=== PATIENT | female | born 1980 | race Caucasian/White ===

== ENCOUNTER 2016-09-17 16:54 | Inpatient (IN) | payer OTHER ==
[~2016-09-17] VITALS: Ht 165.1 cm; Wt 124.9 kg
--- NOTE | 2016-09-17 18:22 | DIAGNOSTIC IMAGING REPORT ---
PROCEDURE: XR CHEST 1 VIEW INDICATION: SHORTNESS OF BREATH TECHNIQUE: Single view chest. 1745 hours COMPARISON: None FINDINGS: Normal cardiomediastinal contour. No central venous congestion. Moderate peribronchial thickening bilaterally. Patchy, multifocal, small alveolar opacities diffusely. No pleural effusion. Intact osseous structures. IMPRESSION: 1. Multifocal peribronchial thickening and alveolar opacities suggestive of bronchitis with superimposed bronchopneumonia and/or atelectasis. 2. No pleural effusion.
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
--- NOTE | 2016-09-17 22:03 | ED CLINICAL REPORT ---
Clinical Report - Physicians/Mid Levels [facility] [address] [place] [address] 09/17/2016 16:56 Patient: VERENICE ORTEGA Time Seen: 17:03. Arrived- By private vehicle. Historian- patient. HISTORY OF PRESENT ILLNESS Chief Complaint: DYSPNEA. (Worsening since 4-5 days ago. The was complicated by bleeding and required a 1 unit transfusion and an iron dextran infusion. The patient recalls her discharge HCT as 24. Prov records have been requested.). Is still present. The dyspnea is severe and is worsened by walking and exertion. No cough, sputum production, fever, chills or chest pain. No calf pain. She has had chest tightness and dyspnea on exertion. Similar symptoms previously: None. Recent medical care: The patient was seen recently by a health care provider. ( Delivered by 5 days ago at [facility] The was required because of the vertebral hemangioma). REVIEW OF SYSTEMS The patient is post-partal and lactating. No skin rash or rash, joint pain, chills or fever. No double vision, ear pain, sore throat, cough or diarrhea. No back pain or difficulty with urination. Denies current . The patient has had difficulty breathing, abdominal pain, constipation, nausea and vomiting. significant swelling in the lower extremities to the hips. All systems otherwise negative, except as recorded above. PAST HISTORY PCP: [facility], OB Dr Perez PROBLEMS: Vertebral Hemangioma Back Pain. Asthma. ADDITIONAL SURGERIES: Back Surgery. . SOCIAL HISTORY Former smoker, end date 07/2016. ADDITIONAL NOTES The nursing notes have been reviewed. PHYSICAL EXAM Vital Signs: 09/17/2016 23:16 BP: 147/77. HR: 97. RR: 22. O2 saturation: 100%. Temp: 99.2 F. Pain level now: 12/26. 09/17/2016 21:43 BP: 153/82. HR: 99. RR: 18. O2 saturation: 100%. Pain level now: 12/26. 09/17/2016 19:07 BP: 145/80. HR: 89. RR: 17. O2 saturation: 100%. 09/17/2016 17:10 BP: 161/88. HR: 107. RR: 20. O2 saturation: 97%. Temp: 98.1 F. Pain level now: 4/10. Appearance: Alert. (Moderat dyspnea with mild exertion). Eyes: Eyes normal inspection. ENT: Pharynx normal. Neck: Normal inspection. No jugular venous distention. CVS: Normal heart rate and rhythm. Heart sounds normal. No cardiac murmur. Respiratory: No respiratory distress. Breath sounds normal. Abdomen: Soft and nontender. Skin: Skin warm. Normal skin color. Extremities: Extremities exhibit normal ROM. No lower extremity edema. Neuro: No alteration in mental status. LABS, X-RAYS, AND EKG EKG: Normal EKG. Chest X-ray: (Borderline CM, bilat questionable LE ill defined infiltrates RR PROCEDURE: XR CHEST 1 VIEW INDICATION: SHORTNESS OF BREATH TECHNIQUE: Single view chest. 1745 hours COMPARISON: None FINDINGS: Normal cardiomediastinal contour. No central venous congestion. Moderate peribronchial thickening bilaterally. Patchy, multifocal, small alveolar opacities diffusely. No pleural effusion. Intact osseous structures. IMPRESSION: 1. Multifocal peribronchial thickening and alveolar opacities suggestive of bronchitis with superimposed bronchopneumonia and/or atelectasis. 2. No pleural effusion. Dictated by: KRUNAL HDZ MD D: CELINE;09/17/161821 <Electronically signed by KRUNAL HDZ MD in OV> 09/17/161821). Chest CT: (PROCEDURE: CTA THORAX WITH CONTRAST INDICATION: SHORTNESS OF BREATH TECHNIQUE: 92 ml of Isovue 370 was injected intravenously and axial images were obtained of the chest with 3D sagittal and coronal MIP reconstructions. COMPARISON: Chest x-ray Performed the same day FINDINGS: Suboptimal opacification of the pulmonary arteries. Given this, no obvious pulmonary arterial filling defect. Normal thoracic aorta and heart. No pericardial effusion. Moderate size bilateral pleural effusions. Fairly extensive multifocal bilateral upper lobe centralized patchy alveolar opacities. Mild peribronchial thickening diffusely. Patchy centralized alveolar opacities also seen in the left lower lobe and to a much lesser extent right middle and lower lobes. There is a prominent interstitial thickening at both lung bases. Prominent AP window lymph node measuring approximately 8.5 mm in short axis. Moderate bilateral hilar and subcarinal adenopathy. No suspicious anterior or posterior mediastinal mass. No hiatal hernia. Intact osseous structures with diffuse vertebral body hemangioma of T12 extending into the left pedicle. 16 mm hepatic hemangioma laterally in the right lobe. Gallbladder surgically absent. Liver and spleen are both enlarged. The spleen measures 15.8 cm in craniocaudal dimension. There is moderate diffuse edema in the subcutaneous tissues of the upper abdomen. IMPRESSION: 1. Given technical limitations, no pulmonary embolus. 2. Multifocal patchy centralized bilateral alveolar opacities, interstitial thickening pleural effusions suggests pulmonary edema of noncardiogenic origin. This could be secondary to volume overload or peripartum cardiomyopathy/heart failure. Given the timing, transfusion reaction is less likely. 3. Hepatosplenomegaly. 4. Anasarca. 5. Discussed with Dr. Hallman in the emergency room. Dictated by: KRUNAL HDZ MD D: RENEKR;09/17/162206 <Electronically signed by KRUNAL HDZ MD in OV> 09/17/162206). Abdominal Sonogram: (Name: VERENICE ORTEGA : 80 Sex: Female Age: 36 MR#: [id number] Pt Status: ADM Corrine Ordering Provider: VLADISLAV HALLMAN MD REPORT #: [id number] DATE OF EXAM(S): 09/17/16 PROCEDURE: US ABDOMEN ULTRASOUND-COMPLETE INDICATION: Low hematocrit status post . TECHNIQUE: Siddiqui scale and color Doppler sonographic images of the abdomen were obtained without comparison. COMPARISON: None. FINDINGS: The liver is diffusely enlarged measuring at least 24 cm, but normal echotexture. No mass or intrahepatic biliary dilatation. The gallbladder surgically absent. The extrahepatic common duct is normal measuring 5.5 mm. The visualized pancreas is normal without ductal dilatation or peripancreatic fluid collection. The abdominal aorta is normal in its course and caliber. The retrohepatic inferior vena cava is patent. There is appropriate hepatopetal flow in the portal vein. The right kidney measures 13.6 cm in length. The left kidney measures 13.5 cm in length. Both kidneys demonstrate normal morphology and cortical thickness without hydronephrosis, cyst, solid mass, or shadowing calculus. Color Doppler imaging demonstrates normal blood flow in each kidney. The spleen is enlarged measuring at least 13.0 cm in length. There is no perihepatic or perisplenic ascites. IMPRESSION: 1. No evidence of free abdominal fluid. 2. Hepatosplenomegaly. 3. Post cholecystectomy. Dictated by: KRUNAL HDZ MD D: CELINE;09/17/162205 <Electronically signed by KRUNAL HDZ MD in OV> 09/17/162205). Laboratory Tests: CBC w Diff: (NIMESH: 09/17/2016 17:40) ( MsgRcvd 09/17/2016 18:30) Final results Test Result Flag Units (Reference) WHITE BLOOD COUNT 12.1 H K/uL (4.5-11.5) RED BLOOD COUNT 2.52 L M/uL (4.00-5.20) HEMOGLOBIN 6.3 *L gm/dL (12.0-16.0) CRITICAL RESULTS CALLEDCalled to [facility] 09/17/161805Were 2 patient identifiers used? YWas the result read back? Y HEMATOCRIT 19.5 *L % (36.0-46.0) CRITICAL RESULTS CALLEDCalled to [facility] 09/17/161807Were 2 patient identifiers used? YWas the result read back? Y MEAN CELL VOLUME 77 L fL (80-100) MEAN CORPUSCULAR HGB 25 L pg (26-34) MEAN CORPUSCULAR HGB CONC 32 g/dL (31-37) RED CELL DISTRIBUTION WIDTH 17.9 H % (11.6-14.8) PLATELET COUNT 318 K/uL (150-400) NEUTROPHIL % 81.2 H % (50-75) LYMPH % 12.2 L % (25-40) MONO % 4.9 % (3-14) EOSINOPHIL % 1.4 % (0-4) BASOPHIL % 0.3 % (0-2) RBC MORPHOLOGY 1+ ANISOCYTOSIS~~2+ POLYCHROMIA~~2+ MICROCYTOSIS~~3+ HYPOCHROMIA~~1+ POIKILOCYTOSIS [id number]: (NIMESH: 09/17/2016 17:40) ( [facility] 09/17/2016 18:11) Final results Test Result Flag Units (Reference) D-DIMER QUANTITATIVE 2.11 H ug/mLFEU (0.27-0.52) The primary value of this quantitative assay relates toits negative predictive value (i.e. exclusion) of pulmonaryembolism/deep vein thrombosis/DIC.Elevated levels of d-dimer may also occur with:, age, cancer, inflammation, liver disease,post-op, infection, hematoma, coronary disease, peripheralarteriopathy, bleeding disorders and thrombolytic treatment.Results should be correlated with other clinical andradiological data.Testing Methodology: Latex Immunoassay [id number]: (NIMESH: 09/17/2016 17:40) ( [facility] 09/17/2016 19:04) Final results Test Result Flag Units (Reference) IRON 71 ug/dL (35-150) TOTAL IRON BINDING CAPACITY 435 ug/dL (260-445) % SATURATION 16 % (15-50) [id number]: (NIMESH: 09/17/2016 17:40) ( [facility] 09/17/2016 19:31) Final results Test Result Flag Units (Reference) VITAMIN B12 387 pg/mL (211-946) FOLATE 7.1 ng/mL (>3.0) BNP: (NIMESH: 09/17/2016 17:40) ( [facility] 09/17/2016 18:21) Final results Test Result Flag Units (Reference) B-TYPE NATRIURETIC PEPTIDE 117 H pg/ml (5-100) CHEM 13 PANEL: (NIMESH: 09/17/2016 17:40) ( MsgRcvd 09/17/2016 18:22) Final results Test Result Flag Units (Reference) GLUCOSE 123 H mg/dL (70-110) BUN 11 mg/dL (7-18) CREATININE 0.5 L mg/dL (0.6-1.3) Estimated GFR >60 mL/min Estimated GFR- >60 mL/min Note: Persistent reduction over 3 months in eGFR<60 mL/min/1.73 m2 defines CKD. Patients with eGFR values>=60 mL/min/1.73 m2 may also have CKD if evidence ofpersistent proteinuria. Additional information may be foundat www.kidney.org. SODIUM 143 mmol/L (136-145) POTASSIUM 3.9 mmol/L (3.5-5.1) CHLORIDE 109 H mmol/L (98-107) CARBON DIOXIDE 24 mmol/L (21-32) CALCIUM 8.0 L mg/dL (8.5-10.1) TOTAL PROTEIN 5.9 L g/dL (6.4-8.2) ALBUMIN 2.1 L g/dL (3.3-5.0) BILIRUBIN, TOTAL 0.2 mg/dL (0.0-1.0) ALKALINE PHOSPHATASE 162 H U/L (46-116) AST (SGOT) 35 U/L (15-37) ALT (SGPT) 45 U/L (12-78) MAGNESIUM 1.7 L mg/dL (1.8-2.4) CPK 132 U/L (24-260) TROPONIN I <0.05 ng/mL (0.00-1.5) TROPONIN REFERENCE RANGE:<0.1 NEGATIVE0.1-1.5 INDETERMINANT>1.5 POSITIVE Type & Cross: (NIMESH: 09/17/2016 22:01) ( MsgRcvd 09/17/2016 22:56) IP Test Result Flag Units (Reference) LEUKOREDUCED PACKED CELLS [id number] AP PC XM COMPATIBLE [id number] AP PC XM COMPATIBLE [id number] AP PC XM COMPATIBLE PATIENT BLOOD TYPE A Positive ANTIBODY SCREEN NEGATIVE . PROGRESS AND PROCEDURES Course of Care: Pretest DDX: PE, Edema, carditis, CHF 18:10 09/17/16. Hb 6.3 HCT 19.5 Where is the blood going? Pt denies significant vaginal bleeding. The pelvic US shows no large volume of intra uterine blood An abdominal US shows no free fluid/blood Why is the patient dyspnic? Both severe anemia and non-cardiogenic pulmonary edema. She does not have a PE, asthma or pneumonia Why does she have non cardiac pulmonary edema? The answer is not clear. The patient was initially discussed with Dr Steel when few labs were available. Dr Wong has come to the ED to admit the patient. Critical care performed (60 minutes). Time includes: direct patient care, patient reassessment, interpretation of data (laboratory data and chest xrays), review of patient's medical records, medical consultation and documentation of patient care- see progress notes. Old inpatient records reviewed. (Prov did not send labs. Those were re requested.). Disposition orders written. Disposition: Admitted. CLINICAL IMPRESSION NON CARDIOGENIC PULMONARY EDEMA ACUTE ANEMIA ACUTE DYSPNEA. (Electronically signed by Vladislav Hallman MD 09/18/2016 0:21)
--- NOTE | 2016-09-17 22:03 | ED ORDER SUMMARY ---
..... Patient: VERENICE ORTEGA OrderSheet [facility] VisitID: [id number] [place] [address] 36y, F Registration Date/Time: 09/17/2016 ORDER SHEET Weight: 111.5 kg (stated) Allergies: morphine, Sulfa Antibiotics GENERAL ORDERS: College Advisor (Continuous) (17:25 09/17/2016 Gualberto HUERTA) (18:44 JSimbeck R.N.) Chest 1V (Post ) Urgent (17:26 09/17/2016 Gualberto HUERTA) (Ack 17:27 Vlad) (17:48 JSimbeck R.N.) D-Dimer Urgent (17:09/17/2016 Gualberto HUERTA) (Ack 17:27 Vlad) (17:48 JSimbeck R.N.) BNP Urgent (17:09/17/2016 Gualberto HUERTA) (Ack 17:27 Vlad) (17:48 JSimbeck R.N.) Cardiac Panel Stat (17:09/17/2016 Gualberto HUERTA) (Ack 17:27 Vlad) (17:48 JSimbeck R.N.) Oxygen (2 L/min) (NC) (17:26 09/17/2016 Gualberto HUERTA) (17:51 JSimbeck R.N.) Pulse oximeter (17:26 09/17/2016 Gualberto HUERTA) (17:26 JSimbeck R.N.) EKG - ER Stat (17:26 09/17/2016 Gualberto HUERTA) (Ack 17:27 Vlad) (18:43 Vlad) US Abdomen Limited (No) (is there a lot of blood in the uterus.?) Urgent (18:16 09/17/2016 Gualberto HUERTA) (Ack 19:42 Rodrick) (Cancelled: Wrong Order20:03 [facility] Clinical Psychologist [facility]) CTA Thorax w Cont (No) (see chart) Urgent (19:15 09/17/2016 Gualberto HUERTA) (Ack 19:42 Rodrick) (21:46 JQuivey R.N.) US Pelvic Complete w Transvag Urgent (20:04 09/17/2016 [facility] verbal order read back to Gualberto HUERTA) (Ack 20:11 [facility]) (Cancelled: other20:45 Gualberto HUERTA) US Abdomen Complete (No) (do it like a FAST exam. ? free fluid in the abdomen. ) Urgent (20:45 09/17/2016 Gualberto HUERTA) (Ack 20:46 Rodrick) (21:46 Garcia Brody.N.) Type & Cross (SYMPTOMATIC ANEMIA) (SYMPTOMATIC ANEMIA) Urgent (22:01 09/17/2016 Gualberto HUERTA) (Ack 22:26 Rodrick) MEDICATION ORDERS: IV FLUIDS: IV Saline Lock (17:26 09/17/2016 Gualberto HUERTA) (17:48 АННАimbeck R.N.) Dilaudid IV 0.5 mg (HIGH ALERT MEDICATION, NOW) (00:00 09/18/2016 Gualberto HUERTA) (Ack 0:03 JQuivey R.N.) (0:06 JQuivey R.N.) ORDER SHEET NOTES: [Electronically signed by Pete Simons MD (00:21 09/18/2016)] [Electronically signed by Bertram Reynolds R.N. (02:12 09/18/2016)] [Electronically locked/signed by Bertram Reynolds R.N. (02:12 09/18/2016)]
--- NOTE | 2016-09-17 22:03 | ED ORDER SUMMARY ---
..... Patient: VERENICE ORTEGA OrderSheet [facility] VisitID: [id number] [place] [address] 36y, F Registration Date/Time: 09/17/2016 ORDER SHEET Weight: 111.5 kg (stated) Allergies: morphine, Sulfa Antibiotics GENERAL ORDERS: Datapower Developer (Continuous) (17:25 09/17/2016 Gualberto HUERTA) (18:44 JSimbeck R.N.) Chest 1V (Post ) Urgent (17:26 09/17/2016 Gualberto HUERTA) (Ack 17:27 Vlad) (17:48 JSimbeck R.N.) D-Dimer Urgent (17:09/17/2016 Gualberto HUERTA) (Ack 17:27 Vlad) (17:48 JSimbeck R.N.) BNP Urgent (17:09/17/2016 Gualberto HUERTA) (Ack 17:27 Vlad) (17:48 JSimbeck R.N.) Cardiac Panel Stat (17:09/17/2016 Gualberto HUERTA) (Ack 17:27 Vlad) (17:48 JSimbeck R.N.) Oxygen (2 L/min) (NC) (17:26 09/17/2016 Gualberto HUERTA) (17:51 JSimbeck R.N.) Pulse oximeter (17:26 09/17/2016 Gualberto HUERTA) (17:26 JSimbeck R.N.) EKG - ER Stat (17:26 09/17/2016 Gualberto HUERTA) (Ack 17:27 Vlad) (18:43 Vlad) US Abdomen Limited (No) (is there a lot of blood in the uterus.?) Urgent (18:16 09/17/2016 Gualberto HUERTA) (Ack 19:42 Rodrick) (Cancelled: Wrong Order20:03 [facility] Business Development Manager) CTA Thorax w Cont (No) (see chart) Urgent (19:15 09/17/2016 Gualberto HUERTA) (Ack 19:42 Rodrick) (21:46 JQuivey R.N.) US Pelvic Complete w Transvag Urgent (20:04 09/17/2016 [facility] Business Development Manager verbal order read back to Gualberto HUERTA) (Ack 20:11 [facility] Business Development Manager) (Cancelled: other20:45 Gualberto HUERTA) US Abdomen Complete (No) (do it like a FAST exam. ? free fluid in the abdomen. ) Urgent (20:45 09/17/2016 Gualberto HUERTA) (Ack 20:46 Rodrick) (21:46 Garcia Brody.N.) Type & Cross (SYMPTOMATIC ANEMIA) (SYMPTOMATIC ANEMIA) Urgent (22:01 09/17/2016 Gualberto HUERTA) (Ack 22:26 Rodrick) MEDICATION ORDERS: IV FLUIDS: IV Saline Lock (17:26 09/17/2016 Gualberto HUERTA) (17:48 АННАimbeck R.N.) Dilaudid IV 0.5 mg (HIGH ALERT MEDICATION, NOW) (00:00 09/18/2016 Gualberto HUERTA) (Ack 0:03 JQuivey R.N.) (0:06 JQuivey R.N.) ORDER SHEET NOTES: [Electronically signed by Pete Simons MD (00:21 09/18/2016)] [Electronically signed by Bertram Reynolds R.N. (02:12 09/18/2016)] [Electronically locked/signed by Bertram Reynolds R.N. (02:12 09/18/2016)]
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
--- NOTE | 2016-09-17 22:03 | ED CLINICAL REPORT ---
Clinical Report - Physicians/Mid Levels [facility] [address] [place] [address] 09/17/2016 16:56 Patient: VERENICE ORTEGA Time Seen: 17:03. Arrived- By private vehicle. Historian- patient. HISTORY OF PRESENT ILLNESS Chief Complaint: DYSPNEA. (Worsening since 4-5 days ago. The was complicated by bleeding and required a 1 unit transfusion and an iron dextran infusion. The patient recalls her discharge HCT as 24. Prov records have been requested.). Is still present. The dyspnea is severe and is worsened by walking and exertion. No cough, sputum production, fever, chills or chest pain. No calf pain. She has had chest tightness and dyspnea on exertion. Similar symptoms previously: None. Recent medical care: The patient was seen recently by a health care provider. ( Delivered by 5 days ago at [facility] The was required because of the vertebral hemangioma). REVIEW OF SYSTEMS The patient is post-partal and lactating. No skin rash or rash, joint pain, chills or fever. No double vision, ear pain, sore throat, cough or diarrhea. No back pain or difficulty with urination. Denies current . The patient has had difficulty breathing, abdominal pain, constipation, nausea and vomiting. significant swelling in the lower extremities to the hips. All systems otherwise negative, except as recorded above. PAST HISTORY PCP: [facility], OB Dr Perez PROBLEMS: Vertebral Hemangioma Back Pain. Asthma. ADDITIONAL SURGERIES: Back Surgery. . SOCIAL HISTORY Former smoker, end date 07/2016. ADDITIONAL NOTES The nursing notes have been reviewed. PHYSICAL EXAM Vital Signs: 09/17/2016 23:16 BP: 147/77. HR: 97. RR: 22. O2 saturation: 100%. Temp: 99.2 F. Pain level now: 12/26. 09/17/2016 21:43 BP: 153/82. HR: 99. RR: 18. O2 saturation: 100%. Pain level now: 12/26. 09/17/2016 19:07 BP: 145/80. HR: 89. RR: 17. O2 saturation: 100%. 09/17/2016 17:10 BP: 161/88. HR: 107. RR: 20. O2 saturation: 97%. Temp: 98.1 F. Pain level now: 4/10. Appearance: Alert. (Moderat dyspnea with mild exertion). Eyes: Eyes normal inspection. ENT: Pharynx normal. Neck: Normal inspection. No jugular venous distention. CVS: Normal heart rate and rhythm. Heart sounds normal. No cardiac murmur. Respiratory: No respiratory distress. Breath sounds normal. Abdomen: Soft and nontender. Skin: Skin warm. Normal skin color. Extremities: Extremities exhibit normal ROM. No lower extremity edema. Neuro: No alteration in mental status. LABS, X-RAYS, AND EKG EKG: Normal EKG. Chest X-ray: (Borderline CM, bilat questionable LE ill defined infiltrates RR PROCEDURE: XR CHEST 1 VIEW INDICATION: SHORTNESS OF BREATH TECHNIQUE: Single view chest. 1745 hours COMPARISON: None FINDINGS: Normal cardiomediastinal contour. No central venous congestion. Moderate peribronchial thickening bilaterally. Patchy, multifocal, small alveolar opacities diffusely. No pleural effusion. Intact osseous structures. IMPRESSION: 1. Multifocal peribronchial thickening and alveolar opacities suggestive of bronchitis with superimposed bronchopneumonia and/or atelectasis. 2. No pleural effusion. Dictated by: KRUNAL HDZ MD D: CELINE;09/17/161821 <Electronically signed by KRUNAL HDZ MD in OV> 09/17/161821). Chest CT: (PROCEDURE: CTA THORAX WITH CONTRAST INDICATION: SHORTNESS OF BREATH TECHNIQUE: 92 ml of Isovue 370 was injected intravenously and axial images were obtained of the chest with 3D sagittal and coronal MIP reconstructions. COMPARISON: Chest x-ray Performed the same day FINDINGS: Suboptimal opacification of the pulmonary arteries. Given this, no obvious pulmonary arterial filling defect. Normal thoracic aorta and heart. No pericardial effusion. Moderate size bilateral pleural effusions. Fairly extensive multifocal bilateral upper lobe centralized patchy alveolar opacities. Mild peribronchial thickening diffusely. Patchy centralized alveolar opacities also seen in the left lower lobe and to a much lesser extent right middle and lower lobes. There is a prominent interstitial thickening at both lung bases. Prominent AP window lymph node measuring approximately 8.5 mm in short axis. Moderate bilateral hilar and subcarinal adenopathy. No suspicious anterior or posterior mediastinal mass. No hiatal hernia. Intact osseous structures with diffuse vertebral body hemangioma of T12 extending into the left pedicle. 16 mm hepatic hemangioma laterally in the right lobe. Gallbladder surgically absent. Liver and spleen are both enlarged. The spleen measures 15.8 cm in craniocaudal dimension. There is moderate diffuse edema in the subcutaneous tissues of the upper abdomen. IMPRESSION: 1. Given technical limitations, no pulmonary embolus. 2. Multifocal patchy centralized bilateral alveolar opacities, interstitial thickening pleural effusions suggests pulmonary edema of noncardiogenic origin. This could be secondary to volume overload or peripartum cardiomyopathy/heart failure. Given the timing, transfusion reaction is less likely. 3. Hepatosplenomegaly. 4. Anasarca. 5. Discussed with Dr. Hallman in the emergency room. Dictated by: KRUNAL HDZ MD D: RENEKR;09/17/162206 <Electronically signed by KRUNAL HDZ MD in OV> 09/17/162206). Abdominal Sonogram: (Name: VERENICE ORTEGA : 80 Sex: Female Age: 36 MR#: [id number] Pt Status: ADM Corrine Ordering Provider: VLADISLAV HALLMAN MD REPORT #: [id number] DATE OF EXAM(S): 09/17/16 PROCEDURE: US ABDOMEN ULTRASOUND-COMPLETE INDICATION: Low hematocrit status post . TECHNIQUE: Siddiqui scale and color Doppler sonographic images of the abdomen were obtained without comparison. COMPARISON: None. FINDINGS: The liver is diffusely enlarged measuring at least 24 cm, but normal echotexture. No mass or intrahepatic biliary dilatation. The gallbladder surgically absent. The extrahepatic common duct is normal measuring 5.5 mm. The visualized pancreas is normal without ductal dilatation or peripancreatic fluid collection. The abdominal aorta is normal in its course and caliber. The retrohepatic inferior vena cava is patent. There is appropriate hepatopetal flow in the portal vein. The right kidney measures 13.6 cm in length. The left kidney measures 13.5 cm in length. Both kidneys demonstrate normal morphology and cortical thickness without hydronephrosis, cyst, solid mass, or shadowing calculus. Color Doppler imaging demonstrates normal blood flow in each kidney. The spleen is enlarged measuring at least 13.0 cm in length. There is no perihepatic or perisplenic ascites. IMPRESSION: 1. No evidence of free abdominal fluid. 2. Hepatosplenomegaly. 3. Post cholecystectomy. Dictated by: KRUNAL HDZ MD D: CELINE;09/17/162205 <Electronically signed by KRUNAL HDZ MD in OV> 09/17/162205). Laboratory Tests: CBC w Diff: (NIMESH: 09/17/2016 17:40) ( MsgRcvd 09/17/2016 18:30) Final results Test Result Flag Units (Reference) WHITE BLOOD COUNT 12.1 H K/uL (4.5-11.5) RED BLOOD COUNT 2.52 L M/uL (4.00-5.20) HEMOGLOBIN 6.3 *L gm/dL (12.0-16.0) CRITICAL RESULTS CALLEDCalled to [facility] 09/17/161805Were 2 patient identifiers used? YWas the result read back? Y HEMATOCRIT 19.5 *L % (36.0-46.0) CRITICAL RESULTS CALLEDCalled to [facility] 09/17/161807Were 2 patient identifiers used? YWas the result read back? Y MEAN CELL VOLUME 77 L fL (80-100) MEAN CORPUSCULAR HGB 25 L pg (26-34) MEAN CORPUSCULAR HGB CONC 32 g/dL (31-37) RED CELL DISTRIBUTION WIDTH 17.9 H % (11.6-14.8) PLATELET COUNT 318 K/uL (150-400) NEUTROPHIL % 81.2 H % (50-75) LYMPH % 12.2 L % (25-40) MONO % 4.9 % (3-14) EOSINOPHIL % 1.4 % (0-4) BASOPHIL % 0.3 % (0-2) RBC MORPHOLOGY 1+ ANISOCYTOSIS~~2+ POLYCHROMIA~~2+ MICROCYTOSIS~~3+ HYPOCHROMIA~~1+ POIKILOCYTOSIS [id number]: (NIMESH: 09/17/2016 17:40) ( [facility] 09/17/2016 18:11) Final results Test Result Flag Units (Reference) D-DIMER QUANTITATIVE 2.11 H ug/mLFEU (0.27-0.52) The primary value of this quantitative assay relates toits negative predictive value (i.e. exclusion) of pulmonaryembolism/deep vein thrombosis/DIC.Elevated levels of d-dimer may also occur with:, age, cancer, inflammation, liver disease,post-op, infection, hematoma, coronary disease, peripheralarteriopathy, bleeding disorders and thrombolytic treatment.Results should be correlated with other clinical andradiological data.Testing Methodology: Latex Immunoassay [id number]: (NIMESH: 09/17/2016 17:40) ( [facility] 09/17/2016 19:04) Final results Test Result Flag Units (Reference) IRON 71 ug/dL (35-150) TOTAL IRON BINDING CAPACITY 435 ug/dL (260-445) % SATURATION 16 % (15-50) [id number]: (NIMESH: 09/17/2016 17:40) ( [facility] 09/17/2016 19:31) Final results Test Result Flag Units (Reference) VITAMIN B12 387 pg/mL (211-946) FOLATE 7.1 ng/mL (>3.0) BNP: (NIMESH: 09/17/2016 17:40) ( [facility] 09/17/2016 18:21) Final results Test Result Flag Units (Reference) B-TYPE NATRIURETIC PEPTIDE 117 H pg/ml (5-100) CHEM 13 PANEL: (NIMESH: 09/17/2016 17:40) ( MsgRcvd 09/17/2016 18:22) Final results Test Result Flag Units (Reference) GLUCOSE 123 H mg/dL (70-110) BUN 11 mg/dL (7-18) CREATININE 0.5 L mg/dL (0.6-1.3) Estimated GFR >60 mL/min Estimated GFR- >60 mL/min Note: Persistent reduction over 3 months in eGFR<60 mL/min/1.73 m2 defines CKD. Patients with eGFR values>=60 mL/min/1.73 m2 may also have CKD if evidence ofpersistent proteinuria. Additional information may be foundat [email or web address].org. SODIUM 143 mmol/L (136-145) POTASSIUM 3.9 mmol/L (3.5-5.1) CHLORIDE 109 H mmol/L (98-107) CARBON DIOXIDE 24 mmol/L (21-32) CALCIUM 8.0 L mg/dL (8.5-10.1) TOTAL PROTEIN 5.9 L g/dL (6.4-8.2) ALBUMIN 2.1 L g/dL (3.3-5.0) BILIRUBIN, TOTAL 0.2 mg/dL (0.0-1.0) ALKALINE PHOSPHATASE 162 H U/L (46-116) AST (SGOT) 35 U/L (15-37) ALT (SGPT) 45 U/L (12-78) MAGNESIUM 1.7 L mg/dL (1.8-2.4) CPK 132 U/L (24-260) TROPONIN I <0.05 ng/mL (0.00-1.5) TROPONIN REFERENCE RANGE:<0.1 NEGATIVE0.1-1.5 INDETERMINANT>1.5 POSITIVE Type & Cross: (NIMESH: 09/17/2016 22:01) ( MsgRcvd 09/17/2016 22:56) IP Test Result Flag Units (Reference) LEUKOREDUCED PACKED CELLS [id number] AP PC XM COMPATIBLE [id number] AP PC XM COMPATIBLE [id number] AP PC XM COMPATIBLE PATIENT BLOOD TYPE A Positive ANTIBODY SCREEN NEGATIVE . PROGRESS AND PROCEDURES Course of Care: Pretest DDX: PE, Edema, carditis, CHF 18:10 09/17/16. Hb 6.3 HCT 19.5 Where is the blood going? Pt denies significant vaginal bleeding. The pelvic US shows no large volume of intra uterine blood An abdominal US shows no free fluid/blood Why is the patient dyspnic? Both severe anemia and non-cardiogenic pulmonary edema. She does not have a PE, asthma or pneumonia Why does she have non cardiac pulmonary edema? The answer is not clear. The patient was initially discussed with Dr Steel when few labs were available. Dr Wong has come to the ED to admit the patient. Critical care performed (60 minutes). Time includes: direct patient care, patient reassessment, interpretation of data (laboratory data and chest xrays), review of patient's medical records, medical consultation and documentation of patient care- see progress notes. Old inpatient records reviewed. (Prov did not send labs. Those were re requested.). Disposition orders written. Disposition: Admitted. CLINICAL IMPRESSION NON CARDIOGENIC PULMONARY EDEMA ACUTE ANEMIA ACUTE DYSPNEA. (Electronically signed by Vladislav Hallman MD 09/18/2016 0:21)
--- NOTE | 2016-09-17 22:06 | DIAGNOSTIC IMAGING REPORT ---
PROCEDURE: US ABDOMEN ULTRASOUND-COMPLETE INDICATION: Low hematocrit status post . TECHNIQUE: Siddiqui scale and color Doppler sonographic images of the abdomen were obtained without comparison. COMPARISON: None. FINDINGS: The liver is diffusely enlarged measuring at least 24 cm, but normal echotexture. No mass or intrahepatic biliary dilatation. The gallbladder surgically absent. The extrahepatic common duct is normal measuring 5.5 mm. The visualized pancreas is normal without ductal dilatation or peripancreatic fluid collection. The abdominal aorta is normal in its course and caliber. The retrohepatic inferior vena cava is patent. There is appropriate hepatopetal flow in the portal vein. The right kidney measures 13.6 cm in length. The left kidney measures 13.5 cm in length. Both kidneys demonstrate normal morphology and cortical thickness without hydronephrosis, cyst, solid mass, or shadowing calculus. Color Doppler imaging demonstrates normal blood flow in each kidney. The spleen is enlarged measuring at least 13.0 cm in length. There is no perihepatic or perisplenic ascites. IMPRESSION: 1. No evidence of free abdominal fluid. 2. Hepatosplenomegaly. 3. Post cholecystectomy.
--- NOTE | 2016-09-17 22:07 | DIAGNOSTIC IMAGING REPORT ---
PROCEDURE: CTA THORAX WITH CONTRAST INDICATION: SHORTNESS OF BREATH TECHNIQUE: 92 ml of Isovue 370 was injected intravenously and axial images were obtained of the chest with 3D sagittal and coronal MIP reconstructions. COMPARISON: Chest x-ray Performed the same day FINDINGS: Suboptimal opacification of the pulmonary arteries. Given this, no obvious pulmonary arterial filling defect. Normal thoracic aorta and heart. No pericardial effusion. Moderate size bilateral pleural effusions. Fairly extensive multifocal bilateral upper lobe centralized patchy alveolar opacities. Mild peribronchial thickening diffusely. Patchy centralized alveolar opacities also seen in the left lower lobe and to a much lesser extent right middle and lower lobes. There is a prominent interstitial thickening at both lung bases. Prominent AP window lymph node measuring approximately 8.5 mm in short axis. Moderate bilateral hilar and subcarinal adenopathy. No suspicious anterior or posterior mediastinal mass. No hiatal hernia. Intact osseous structures with diffuse vertebral body hemangioma of T12 extending into the left pedicle. 16 mm hepatic hemangioma laterally in the right lobe. Gallbladder surgically absent. Liver and spleen are both enlarged. The spleen measures 15.8 cm in craniocaudal dimension. There is moderate diffuse edema in the subcutaneous tissues of the upper abdomen. IMPRESSION: 1. Given technical limitations, no pulmonary embolus. 2. Multifocal patchy centralized bilateral alveolar opacities, interstitial thickening pleural effusions suggests pulmonary edema of noncardiogenic origin. This could be secondary to volume overload or peripartum cardiomyopathy/heart failure. Given the timing, transfusion reaction is less likely. 3. Hepatosplenomegaly. 4. Anasarca. 5. Discussed with Dr. Simons in the emergency room.
[2016-09-18] VITALS (13 sets, daily range): BP systolic 123–147; BP diastolic 59–89
[2016-09-18] MEDS ORDERED: COLACE100 MG PO (01:24)
[2016-09-18] MEDS ORDERED: PERCOCET1 TA1 PO ×2 (01:24→16:18)
[2016-09-18] MEDS ORDERED: ALBUTEROL HFA60 DOSE IN ×2 (01:25→16:46)
[2016-09-18] MEDS ORDERED: ACETAMINOPHEN325 MG PO (01:25)
--- NOTE | 2016-09-18 02:12 | ED MAR SUMMARY ---
..... Medication Administration Record [facility] [address] [address] Patient: VERENICE ORTEGA Visit ID: [id number] 36y, F Weight: 111.5 kg Height/Length: 65 in BMI: 41 ALLERGIES: morphine, Sulfa Antibiotics Given 00:04 09/18/2016 Bertram Reynolds RSamanthaNSamantha Medication Administered: DILAUDID [IVP] (HYDROMORPHONE HCL PF), Dose: 0.5 mg IVP over 2 minute(s), Site: #1 right forearm. Medication Ordered: Dilaudid IV 0.5 mg (HIGH ALERT MEDICATION, NOW).
--- NOTE | 2016-09-18 02:12 | ED DISCHARGE INSTRUCTIONS ---
Patient: VERENICE ORTEGA General Instructions [facility] VisitID: [id number] [address] [place] [address] 36y, F Registration Date/Time: 09/17/2016 NON CARDIOGENIC PULMONARY EDEMA ACUTE ANEMIA ACUTE DYSPNEA. (Electronically signed by Pete Simons MD 09/18/2016 0:21)
--- NOTE | 2016-09-18 02:12 | ED MAR SUMMARY ---
..... Medication Administration Record [facility] [address] [place] [address] Patient: VERENICE ORTEGA Visit ID: [id number] 36y, F Weight: 111.5 kg Height/Length: 65 in BMI: 41 ALLERGIES: morphine, Sulfa Antibiotics Given 00:04 09/18/2016 Bertram Reynolds RSamanthaNSamantha Medication Administered: DILAUDID [IVP] (HYDROMORPHONE HCL PF), Dose: 0.5 mg IVP over 2 minute(s), Site: #1 right forearm. Medication Ordered: Dilaudid IV 0.5 mg (HIGH ALERT MEDICATION, NOW).
--- NOTE | 2016-09-18 02:12 | ED MED RECONCILIATION SUMMARY ---
Patient: PING ORTEGARINKeagan Forde Medication Reconciliation Report [facility] VisitID: [id number] [address] [place] [address] 36y, F Registration Date/Time: 09/17/2016 Weight: 111.5 kg Height/Length: 65 in. BMI: 41.0 ALLERGIES: morphine, Sulfa Antibiotics The patient's Home Medications are listed below: THE FOLLOWING MEDICATIONS NEED TO BE RECONCILED: Albuterol Sulfate HFA Inhalation Docusate Sodium Oral OxyCODONE HCl ER Oral Vitamins Oral 1 pill, daily Tylenol Oral The source(s) of the original Home Medication information: Not obtained. The following Medications were given to the patient in the Emergency Department: Dilaudid [IVP] IVP 0.5 mg, administered: 09/18/2016 12:04:00 AM The following Medications were prescribed to the patient: None.
--- NOTE | 2016-09-18 02:12 | ED MED RECONCILIATION SUMMARY ---
Patient: PING ORTEGARINKeagan Forde Medication Reconciliation Report [facility] VisitID: [id number] [address] [place] [address] 36y, F Registration Date/Time: 09/17/2016 Weight: 111.5 kg Height/Length: 65 in. BMI: 41.0 ALLERGIES: morphine, Sulfa Antibiotics The patient's Home Medications are listed below: THE FOLLOWING MEDICATIONS NEED TO BE RECONCILED: Albuterol Sulfate HFA Inhalation Docusate Sodium Oral OxyCODONE HCl ER Oral Vitamins Oral 1 pill, daily Tylenol Oral The source(s) of the original Home Medication information: Not obtained. The following Medications were given to the patient in the Emergency Department: Dilaudid [IVP] IVP 0.5 mg, administered: 09/18/2016 12:04:00 AM The following Medications were prescribed to the patient: None.
--- NOTE | 2016-09-18 02:12 | ED DISCHARGE INSTRUCTIONS ---
Patient: VERENICE ORTEGA General Instructions [facility] VisitID: [id number] [address] [place] [address] 36y, F Registration Date/Time: 09/17/2016 NON CARDIOGENIC PULMONARY EDEMA ACUTE ANEMIA ACUTE DYSPNEA. (Electronically signed by Pete Simons MD 09/18/2016 0:21)
--- NOTE | 2016-09-18 03:17 | HISTORY AND PHYSICAL ---
ADMITTED: 09/18/2016 CHIEF COMPLAINT: 1. Weakness. 2. Shortness of breath HISTORY OF PRESENT ILLNESS: The patient is a 36-year-old lady who presents to the emergency department this evening with weakness and shortness breath. She is status post section delivery on 09/12/2016 at [facility]. 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 Neurosurgeon web consultant felt that labor might result in vertebral body collapse, particularly at T12, L2 and L3, and therefore, the patient underwent a C- section. She had some evidence of placental abruption and had at least 800 mL of blood loss at the time of the . She did have a hematocrit of around 21 after the surgery and was transfused with a unit and had a hematocrit of 24 when she was discharged. She was also given a dose of iron dextran. She has not had any unusual bleeding over the last several days, but has become progressively weaker and more short of breath and has developed quite pronounced fluid retention. She presented to the emergency department complaining of shortness of breath and fatigue. Evaluation in the emergency department showed a hematocrit of 19.5 and hemoglobin of 6.3. She also had a D-dimer elevation at 2.11. She had a CT angiogram, which was negative for pulmonary emboli. It did suggest a patchy alveolar and opacities and diffuse soft tissue fluid retention with concern of possible -induced cardiomyopathy. BNP result was slightly elevated at 117. The patient was felt to be a candidate for admission given her symptoms, low hematocrit, and fluid overloaded state. MEDICAL/SURGICAL HISTORY: Past medical history: Remarkable for a remote history of asthma. 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 She has had some problems with elevated blood pressure readings during her . She has not had preexisting hypertension. She did have a fair amount of fluid retention developing in the last several days of . Surgical history: Remarkable for tonsillectomy done in 1995. She had an attempted embolization of hemangiomas in the thoracic and lumbar spine at the [facility] in the year 1999. These were basically unsuccessful. She had a cholecystectomy in the year 1999. She had the as noted on 09/12/2016. MEDICATIONS: 1. Oxycodone 10-15 mg every 3-4 hours for post section pain 2. She also is taking some regular Tylenol tablets. 3. She is using a stool softener. 4. vitamin 1 daily. ALLERGIES: 1. PENICILLIN. 2. MORPHINE. SOCIAL HISTORY: Indicates the patient is and living with a boyfriend who is the father of her present child. She has been a smoker of 1/4-1/2 pack day for at least 20 years. She decided she would stop smoking at the time that she is delivered her baby and has not smoked since. FAMILY HISTORY: Remarkable for a mother who at age 52 of multiple myeloma. Her father is alive and well and in his late 50 and has a problem with asthma and sleep apnea. REVIEW OF SYSTEMS: HEENT has been okay. She has had no visual changes. She has had some slight headaches, but not severe. Respiratory is remarkable for some shortness of breath and regular respiratory rate as noted above. Cardiovascular is okay, other than a rapid heart rate. She does have edema in the lower legs. Gastrointestinal is okay with no major nausea, vomiting, or diarrhea. Genitourinary is okay with no problems passing urine. She is having some ongoing vaginal spotting but not severe bleeding. Musculoskeletal is remarkable for chronic mid and lower back pain due to the hemangiomas. She has had no sensory problems. Skin has been okay. Psychiatric is okay. Neurologic is okay with no focal numbness or weakness. PHYSICAL EXAMINATION: GENERAL: Shows the patient to be a woman who appears much older than her stated age. VITAL SIGNS: She has a blood pressure on arrival 160/88. Pulse is in the 99-110 range. Respiratory rate is in the 20-30 range. Oxygen saturation is 100% on 2 liters of nasal prong oxygen. Temperature is 99.2. HEENT: Head is normal. Ear canals and tympanic membranes are normal. Eyes show clear conjunctivae and sclerae. Fundi show flat disk and normal vessels and no hemorrhages or exudates. Nose and throat are clear. NECK: Basically supple. Carotid pulses are normal. CHEST: Clear to auscultation and percussion. There is no pronounced wheezing or rales or rhonchi. HEART: Reveals normal S1 and S2 with a grade 1/6 systolic murmur along the left sternal border. There is no S3 and no diastolic murmur. ABDOMEN: Somewhat obese with no organomegaly or mass. There is some tenderness in the lower abdomen along the transverse incision for the . PELVIC: Not done. RECTAL: Not done. EXTREMITIES: Show +2 edema, +2 dorsalis pedis, pulses are normal. Range of motion is basically normal. NEUROLOGIC: Reveals the patient to be alert and oriented x3. Cranial nerves are normal. Motor and sensory exams are basically normal. SKIN: Okay. No unusual rash. LAB/IMAGING: Show white blood cell count to be 12,000, hemoglobin is 6.3. Hematocrit is 19.5. D-dimer is 2.4. BNP is 117. Sodium is 143, potassium 3.9, chloride 109, CO2 of 24, glucose 123, creatinine 0.5, BUN 11. CPK is 132. Troponin I is less than 0.05. Total bilirubin is 0.2. SGOT is 35 and SGPT is 45. Magnesium is 1.7. Chest x-ray is showing some peribronchial thickening and multiple alveolar opacities is noted. CT angiogram of the chest shows no evidence of pulmonary embolism and does show the alveolar opacities and peribronchial thickening as well. It also shows soft tissue anasarca. These abdominal CT scan and pelvic CT scan show no unusual fluid collections and no evidence of any unsuspected hematoma. IMPRESSION: 1. The patient is presenting with marked anemia following delivery and some blood loss following surgery. She is quite symptomatic from this. She also may have an element of heart failure and fluid overload that has developed. There is no evidence of any ongoing blood loss, and it may have simply taken this long for the intravascular and extravascular fluids spaces to calibrate. 2. Other problems include mild hyperreflexia, though thee patient does not really seem to have preeclampsia due to normal kidney function, normal liver tests and lack protein in the urine. She is, however, significantly hypertensive and fluid overload and she will be treated for these conditions with a diuretic and blood pressure medication. 3. Other problems include congenital hemangiomas, particularly at the T12 vertebral body and L2 and L3 vertebral bodies. 4. She also has a significant history of asthma and has been a smoker. PLAN: The patient is admitted and will be given furosemide IV and magnesium IV on arrival in the intensive care unit. She will be transfused with 2 units of packed red blood cells initially, with furosemide given after the second unit is in and possibly after the first unit is in, depending on response. She will have blood testing repeated to see how her hematocrit is doing in the morning to see if she needs another unit of blood. She will continue the oxycodone for pain control. She will continue to nurse her baby. She will be started on Labetalol 100 mg every 12 hours for helping control blood pressure.
--- NOTE | 2016-09-18 08:30 | Progress Note ---
Subjective General Note Date: September 18, 2016 Admission Date: September 17, 2016 Hospital Day: 2 PCP: Unknown Status: Inpatient Advanced Directive: Full Code Room: 303 Brief History: The patient is a 36-year-old female with a significant past medical history of asthma, congenital vertebral hemangiomas, hypertension, cholelithiasis status post cholecystectomy, recent who presented to [facility] emergency department on the day of admission secondary to complaints of weakness and shortness of breath. [facility] ER evaluation was consistent with severe anemia, hypertension. Secondary to the above, the patient was admitted by Maximino Wong M.D. for further evaluation and treatment. For other history present illness, past medical history, family history, social history, review of systems, and admission physical examination please see the patient's history and physical examination and ER visit note in the patient's medical record. Subjective: The patient states she is doing better today. Decrease shortness of breath. Ambulating without problems. No O2 requirements at rest or with ambulation. Feels ready for discharge Patient requests: No specific other than pain control Medications and Allergies Medications Current Medications Sig/Yuliya Start time Last Medication Dose Route Stop Time Status Admin Albuterol Sulfate 2.5 MG Q3H PRN 09/18 0415 AC 09/18 IN 0423 Oxycodone HCl See Dose Q4H PRN 09/18 0100 AC 09/18 Insts (1) PO 0616 Sodium Chloride 250 ML .[FOR TRANSFUSION] 09/18 0100 AC 09/18 IV 0140 Labetalol HCl 100 MG BID 09/18 0045 AC 09/18 PO 0144 Sodium Chloride 500 ML ASDIRECTED 09/18 0045 AC 09/18 IV 0040 Sodium Chloride 500 ML ASDIRECTED 09/18 0045 AC IV Ondansetron HCl 4 MG Q4H PRN 09/17 2245 AC IV Dose Instructions: (1)Oxycodone HCl: 10 - 15 MG Allergies Coded Allergies: Sulfa Antibiotics (Severe, Anaphylaxis 09/18/16) Morphine (Severe, MIGRAINES 09/18/16) Physical Exam Vital Signs / I&Os Vital Signs Date Time Temp Pulse Resp B/P Pulse O2 O2 Flow FiO2 Ox Delivery Rate 09/18 0633 86 20 144/78 98 Nasal 2.0 Cannula 09/18 626 98.4 09/18 612 94 22 140/59 98 Nasal 2.0 Cannula 09/18 0510 99.0 98 18 144/74 99 Nasal 2.0 Cannula 09/18 0448 99.3 90 24 138/73 98 Nasal 2.0 Cannula 09/18 0423 2.0 04 0410 98.2 95 22 123/89 100 Nasal 2.0 Cannula 09/18 0309 99.0 89 26 137/71 100 Nasal 2.0 Cannula 09/18 0205 98.4 93 20 141/65 99 Nasal Cannula 09/18 0150 98.4 94 13 146/88 99 Nasal 2.0 Cannula 09/18 0144 92 04 0138 98.4 101 21 147/88 99 Nasal 2.0 Cannula 09/18 0110 2.0 09/18 0105 Nasal 2.0 Cannula 09/18 0037 99.3 96 18 145/78 99 Nasal 2.0 Cannula General Appearance Alert, Oriented X3, Cooperative, No acute distress Lungs Clear to auscultation, Normal air movement Cardiovascular Regular rate and rhythm, Normal S1 and S2, No murmurs, gallops, rubs Abdomen Normal bowel sounds, Soft Extremities No cyanosis, No clubbing Neurological Cranial nerves intact, No lateralizing signs Psych/Mental Status Mental status normal, Mood normal LAB Results Laboratory Tests 09/18 09/17 09/17 09/17 0050 1740 1740 1740 Chemistry Iron (35 - 150 ug/dL) 71 TIBC (260 - 445 ug/dL) 435 Iron Saturation (15 - 50 %) 16 B-Natriuretic Peptide (5 - 100 pg/ml) 117 Vitamin B12 (211 - 946 pg/mL) 387 Folate (>3.0 ng/mL) 7.1 Urines Urine Color YELLOW Urine Appearance CLEAR Urine pH (5.0 - 8.0) 7.5 Ur Specific [place] (1.010 - 1.030) 1.010 Urine Protein (NEGATIVE) NEGATIVE Urine Ketones (NEGATIVE) NEGATIVE Urine Blood (NEGATIVE) NEGATIVE Urine Nitrite (NEGATIVE) NEGATIVE Urine Bilirubin (NEGATIVE) NEGATIVE Urine Urobilinogen (0.2 - 1.0 EU/dL) 0.2 Ur Leukocyte Esterase (NEGATIVE) NEGATIVE Urine RBC (0 - 1 rbc/hpf) 0-1 Urine WBC (0 - 1 wbc/hpf) 0-1 Ur Epithelial Cells (0 - 5 EPI/hpf) 0-1 Urine Bacteria (NONE SEEN) NONE SEEN Urine Glucose (NEGATIVE) NEGATIVE Urine Comment CULT NOT INDICATED 09/17 1740 Chemistry Plasma Sodium (136 - 145 mmol/L) 143 Plasma Potassium (3.5 - 5.1 mmol/L) 3.9 Plasma Chloride (98 - 107 mmol/L) 109 CO2 (Enzymatic) (21 - 32 mmol/L) 24 BUN (7 - 18 mg/dL) 11 Creatinine (0.6 - 1.3 mg/dL) 0.5 Est GFR ( Amer) (mL/min) >60 Est GFR (Non-Af Amer) (mL/min) >60 Glucose (70 - 110 mg/dL) 123 Plasma Calcium (8.5 - 10.1 mg/dL) 8.0 Plasma Magnesium (1.8 - 2.4 mg/dL) 1.7 Total Bilirubin (0.0 - 1.0 mg/dL) 0.2 AST (15 - 37 U/L) 35 ALT (12 - 78 U/L) 45 Alkaline Phosphatase (46 - 116 U/L) 162 Creatine Kinase (24 - 260 U/L) 132 Troponin (0.00 - 1.5 ng/mL) <0.05 Total Protein (6.4 - 8.2 g/dL) 5.9 Albumin (3.3 - 5.0 g/dL) 2.1 Coagulation D-Dimer, Quantitative (0.27 - 0.52 ug/mLFEU) 2.11 Hematology WBC (4.5 - 11.5 K/uL) 12.1 RBC (4.00 - 5.20 M/uL) 2.52 Hgb (12.0 - 16.0 gm/dL) 6.3 Hct (36.0 - 46.0 %) 19.5 MCV (80 - 100 fL) 77 MCH (26 - 34 pg) 25 RDW (11.6 - 14.8 %) 17.9 Neut % (Auto) (50 - 75 %) 81.2 Lymph % (Auto) (25 - 40 %) 12.2 [place] % (Auto) (3 - 14 %) 4.9 Eos % (Auto) (0 - 4 %) 1.4 Baso % (Auto) (0 - 2 %) 0.3 Plt Count, EDTA (150 - 400 K/uL) 318 RBC Morphology (3733 A) 1+ POIKILOCYTOSIS PUBS MCHC (31 - 37 g/dL) 32 Microbiology Date/Time Procedure - Status Source Growth 09/18 0036 MRSA Screen - RECD NASAL Assessment and Plan Problem List 1. Blood loss anemia Plan -Patient status much improved. -H&H improved at 8.4/25.7, stable -No evidence of ongoing blood loss -Discharge to home with outpatient follow-up with PCP tomorrow -Recommend follow-up H&H in 2-3 days -Patient discharged on iron and vitamin supplementation 2. Asthma Status Chronic Onset Date Unknown Plan -Patient with findings of asthma -Status much improved with bronchodilators -O2 saturations normal at rest and with exercise -Discharge on albuterol 2 inhalations every 4-6 hours -Follow up evaluation with chest x-ray in 1-2 weeks Current status: Fair, improved Anticipated discharge date: Today Anticipated discharge placement: Home Patient care time: Time spent in chart review, patient interview, physical exam, CPOE, and care documentation: Greater than 30 minutes Visit to patient today: 2 Complexity of care: Moderate For other recommendations regarding discharge diet, activity, followup, and discharge medications please see the patient's discharge instructions. Greater than 30 min. was spent in the patient's discharge preparation including discharge interview and physical examination, progress note, discharge instructions, and discharge summary E&M Codes Discharge: Inpt >30 min spent/[id number]
[2016-09-18] MEDS ORDERED: PRENATAL1 TAB PO (16:17)
[2016-09-18] MEDS ORDERED: FERROUS SULFAT325 M1 PO (16:17)
--- NOTE | 2016-09-18 16:20 | Provider's Discharge Care Plan ---
Problem, Goal, Plan Problem List 1. Blood loss anemia Goals: Improve disease control, Prevent disease progress Instructions: Follow up as directed, Take meds as directed, Follow up with your physician in next 1-2 days for repeat blood count.
--- NOTE | 2016-09-19 12:42 | DIAGNOSTIC IMAGING REPORT ---
PROCEDURE: US COMPLETE PELVIC W/TRANSVAG INDICATION: Anemia post , pain TECHNIQUE: Endovaginal calzada scale and color Doppler sonographic images of the female pelvis were obtained. COMPARISON: None. FINDINGS: Transabdominal scanning deferred secondary to post operative state. TRANSVAGINAL SCANS: The uterus is anteverted in position and has a homogeneous myometrial echotexture. It measures approximately 17.4 x 9.7 cm. The endometrium is enlarged/ill-defined. Complex ovoid avascular material and the simple fluid present within the endometrium. No suspicious vascularized mass. The right ovary measures approximately 2.6 x 1.5 x 2.3 cm and has a normal echotexture and vascularity. The left ovary was not visualized. No free pelvic fluid. IMPRESSION: 1. No vascularized endometrial mass to suggest retained products of conception. 2. Complex material within the endometrium is likely clot, expected . 3. No free pelvic fluid.
== END 2016-09-18 17:25 | disposition home or self-care (01) | DRG 561 ==
LOC: ED SRH 16:54 → TRANS SRH 19:07 → CC SRH 09-18 00:41
PROVIDERS: ADMIT Internal Medicine
PROC: 30233N1 Transfusion of Nonautologous Red Blood Cells into Peripheral Vein, Percutaneous Approach (ICD-10-PCS; principal; 2016-09-18)
DX: O16.5 Unspecified maternal hypertension, complicating the puerperium (principal); I10 Essential (primary) hypertension; O90.81 Anemia of the puerperium; D62 Acute posthemorrhagic anemia; O99.53 Diseases of the respiratory system complicating the puerperium; J81.0 Acute pulmonary edema; J45.909 Unspecified asthma, uncomplicated; Z87.891 Personal history of nicotine dependence; D18.09 Hemangioma of other sites
CPT/HCPCS: 90001; 90004; 90047; 90074; 90100; 90155; 90616; 91004; 91162; 91163; 91320; 91504; 91505; 91544; 91556; 91643; 92132; 92610; 92668; 92670; 92720; 92860; 95059